=== PATIENT | male | born 1945 | race Hispanic/Latino ===

== ENCOUNTER → 2017-06-07 | Outpatient (CLI) | payer MEDICARE, BC ==
[~2017-06-07] MED LIST: EXFORGE 10-1601 EACH PO; FINASTERIDE5 MG PO; FLOMAX0.4 MG PO; OXYBUTYNIN CHLOR5 MG PO
--- NOTE | 2017-06-07 14:13 | Diagnostic Imaging Report ---
PROCEDURE: Frontal and lateral views of the chest. COMPARISON: None. INDICATIONS: HYPERTENSION FINDINGS: Lines/tubes: None. Lungs: The lungs are well inflated and clear. There is no evidence of pneumonia or pulmonary edema. Pleura: There is no pleural effusion or pneumothorax. Heart and mediastinum: The heart and the mediastinum are normal. Bones: No acute bony abnormality. IMPRESSION: No acute cardiopulmonary disease. Dictated by: Thierno Arambula M.D. on 06/07/2017 at 14:13 Electronically approved by: Thierno Arambula M.D. on 06/07/2017 at 14:13
== END ==
LOC: RAD 13:39
DX: I10 Essential (primary) hypertension (principal); R53.83 Other fatigue
CPT/HCPCS: 71046

== ENCOUNTER → 2019-09-26 | Outpatient (CLI) | payer MEDICARE, BC ==
--- NOTE | 2019-09-26 12:23 | Diagnostic Imaging Report ---
EXAMINATION: SP LUMBAR, COMPLETE MIN 4VW INDICATION: Back pain COMPARISON: None FINDINGS: AP, lateral, and oblique images of the lumbar spine were obtained. No acute fracture. Vertebral body heights are maintained. Grade 1 anterolisthesis at L5-S1. Minimal retrolisthesis at L2-3. Moderate multilevel degenerative changes with disc space narrowing and osteophyte formation most notably at L4-5 and L5-S1. Oblique images demonstrate no evidence of spondylolysis. Atherosclerotic arterial calcifications. IMPRESSION: No compression fracture Anterolisthesis at L5-S1. Multilevel degenerative changes, most notably at L4-5 and L5-S1. Signed by: Jordyn Hernandez MD on 09/26/2019 12:20 PM
--- NOTE | 2019-09-26 12:24 | Diagnostic Imaging Report ---
EXAMINATION: HIP LEFT 2-3 VW (+/- PELVIS) INDICATION: Left hip pain COMPARISON: None FINDINGS: AP and frog-leg views of the left hip demonstrate no acute fracture or dislocation. Alignment is anatomic. Soft tissues appear unremarkable. Atherosclerotic arterial calcifications. IMPRESSION: No acute osseous injury of the left hip. Signed by: Jordyn Hernandez MD on 09/26/2019 12:20 PM
== END ==
LOC: RAD 11:43
DX: M54.5 Low back pain (principal); M25.552 Pain in left hip
CPT/HCPCS: 72110

== ENCOUNTER → 2019-10-10 | Outpatient (CLI) | payer MEDICARE, BC ==
--- NOTE | 2019-10-11 17:09 | Diagnostic Imaging Report ---
History: Back pain Comparison studies: Lumbar spine MRI 04/10/2015. Lumbar spine x-ray 06/30/2019 Technique: Sagittal and axial T2 , sagittal T1 and IR, axial spin density oblique. Intravenous contrast: None Findings: Number of lumbar vertebral bodies: 5. Alignment: Normal lumbar lordosis with unchanged lumbar levocurvature with apex at L3-L4, grade 2 isthmic spondylolisthesis of L5 on S1 by approximately 8 mm due to chronic bilateral pars defects and minimal retrolisthesis of L1 on L2. Soft tissues: No T2 hyperintense inflammatory changes. Dorsal muscles: Mild symmetric fatty-replaced atrophic changes. Lower thoracic cord: Normal in signal and morphology. The tip of the conus is at L1-L2. Cauda equina: No masses. No arachnoiditis. Vertebrae: No compression fractures, infection or neoplasm. Degenerative changes: L1-L2: Mildly degenerated disc. Minimal retrolisthesis of L1 on L2 with associated uncovered disc/disc bulge and mild facet arthrosis without significant canal or foraminal stenosis. Findings are unchanged. L2-L3: Mildly degenerated disc. Symmetric disc bulge and mild facet arthrosis do not result in significant canal or foraminal stenosis. Findings are unchanged. L3-L4: Severely degenerated disc asymmetric on the right along the concavity lumbar curvature where there are degenerative endplate changes with Schmorl's node formation without significant endplate edema. Asymmetric right disc osteophyte complex, thickened ligamentum flavum and facet arthrosis result in mild canal stenosis, narrowing of the subarticular recesses (right greater than left) and moderate right and mild left foraminal stenosis. Findings are unchanged. L4-L5: Mildly degenerated disc. New 11 mm x 8 mm x 8 mm (SI x AP x TV) focal decreased T2/T1 signal in the right subarticular space compatible with disc extrusion which may be calcified or possibly with vacuum disc which impinges on the right L5 nerve root. Lumbar CT could better evaluate disc morphology, as warranted. New 10 mm x 6 mm x 8 mm left subarticular disc extrusion impinges on the left L5 nerve root. Asymmetric left disc bulge and facet arthrosis result in mild to moderate left and mild right foraminal stenosis. Foraminal stenosis on the left may be minimally increased from the prior exam. Small synovial cyst abuts the left L4 nerve root. No significant canal stenosis. L5-S1: Severely degenerated disc with advanced degenerative endplate changes without endplate edema. Anterolisthesis of L5 on S1 with associated uncovered disc/disc bulge and hypertrophic changes of the facets result in unchanged severe bilateral foraminal stenosis. No canal stenosis. IMPRESSION: 1. New L4-L5 disc extrusions with bilateral L5 nerve root impingement as described. 2. Unchanged Grade 2 L5 isthmic spondylolisthesis with severe disc degeneration and severe bilateral foraminal stenosis at L5-S1. 3. Unchanged severely degenerative L3-L4 disc along the concavity of lumbar levocurvature. 4. Unchanged moderate degenerative foraminal stenosis on the right at L3-L4. Mild to moderate foraminal stenosis on the left at L4-L5. 5. No significant lumbar canal stenosis. Signed by: Dr. Julian Waters M.D. on 10/11/2019 5:05 PM
== END ==
LOC: MRI 10:34
DX: M54.5 Low back pain (principal)
CPT/HCPCS: 72148

== ENCOUNTER 2019-11-13 06:28 | Observation (INO) | payer MEDICARE, BC, OTHER ==
[2019-11-11 14:43] LABS: BASOPHILS % 0.5 % (0.0-1.0); EOSINOPHILS # (AUTO) 0.1 (0.0-0.4); EOSINOPHILS % 1.4 % (0.0-6.0); HEMATOCRIT 40.6 % (38.2-49.6); HEMOGLOBIN 13.9 g/dL (14.0-18.0); LYMPHOCYTES # (AUTO) 2.1 (1.0-3.2); LYMPHOCYTES % 33.5 % (18.0-39.1); MEAN CORPUSCULAR HGB CONC 34.2 g/dL (31-35); MEAN CORPUSCULAR VOLUME 90.6 fL (81-99); MONOCYTES # (AUTO) 0.4 (0.2-0.8); MONOCYTES % 6.5 % (4.4-11.3); NEUTROPHILS # (AUTO) 3.6 (2.1-6.9); NEUTROPHILS % 57.9 % (38.7-80.0); PLATELET COUNT 171 x10e3/uL (140-360); RED BLOOD COUNT 4.48 x10e6/uL (4.3-5.7); RED CELL DISTRIBUTION WIDTH 12.5 % (11.7-14.4)
[2019-11-11 15:00] LABS: INR 0.99; PROTHROMBIN TIME 13.6 seconds (11.9-14.5)
[2019-11-11 15:01] LABS: PARTIAL THROMBOPLASTIN TIME 28.2 seconds (23.8-35.5)
[2019-11-11 15:07] LABS: BLOOD UREA NITROGEN 18 mg/dL (7-26); BUN/CREATININE RATIO 18 (6-25); CALCIUM 8.8 mg/dL (8.4-10.2); CARBON DIOXIDE 19 mmol/L (22-29); CHLORIDE 107 mmol/L (98-107); CREATININE, SERUM 0.99 mg/dL (0.72-1.25); EST GLOMERULAR FILTRATION RATE > 60 ML/MIN (60-); GLUCOSE 105 mg/dL (74-118); SODIUM 139 mmol/L (136-145)
--- NOTE | 2019-11-11 15:25 | Diagnostic Imaging Report ---
EXAMINATION: CHEST 2 VIEWS INDICATION: Pre-operative COMPARISON: None FINDINGS: LINES/TUBES:None LUNGS:The lungs are well-inflated. No focal consolidation or pulmonary edema. PLEURA:No pleural effusion or pneumothorax. MEDIASTINUM:The cardiomediastinal silhouette appears normal in size and shape. Sternotomy wires in place. BONES/SOFT TISSUES:No acute osseous injury. ABDOMEN:No free air under the diaphragm. IMPRESSION: No focal pneumonia or pulmonary edema. Signed by: Jordyn Hernandez MD on 11/11/2019 3:22 PM
[~2019-11-13] VITALS: Ht 175.3 cm; Wt 88.5 kg
[~2019-11-13 06:28] MED LIST changes: +ASPIRIN81 MG PO; +CRESTOR5 MG PO; +METOPROLOL TART25 MG PO; +PROTONIX20 MG PO; +VITAMIN D3250 MCG PO
[2019-11-13] MEDS ORDERED: THROMBIN FOR SOLN 5,000 UNIT VIAL ONE (06:41)
[2019-11-13] MEDS ORDERED: BUPIVACAINE 0.5%/EPI 30 ML SDV INJ ONE (06:41)
[2019-11-13] MEDS ORDERED: VANCOMYCIN HCL 1 GM VIAL ONE (06:41)
[2019-11-13] MEDS ORDERED: IBUPROFEN 800MG/ 200ML 200 ML IV ONE (07:26)
[2019-11-13] MEDS ORDERED: LIDOCAINE HCL (LTA) 4 ML SOLN ONE (07:26)
[2019-11-13] MEDS ORDERED: CEFAZOLIN SOD 1 GM/NS 50ML 100 ML IV ONE (07:28)
[2019-11-13] MEDS ORDERED: MORPHINE SULFATE 5 MG/ML VIAL IM PRN (09:45)
[2019-11-13] MEDS ORDERED: OXYCODONE/ACETAMINOPHEN 5-325 1 EACH TABLET PO PRN (09:45)
[2019-11-13] MEDS ORDERED: CEPACOL SORE THROAT LOZENGES PO PRN (09:45)
[2019-11-13] MEDS ORDERED: LACTATED RINGER'S 1,000 ML IV SCH (09:45)
[2019-11-13] MEDS ORDERED: PROMETHAZINE HCL (IM) 25 MG/ML VIAL IM PRN (09:45)
[2019-11-13] MEDS ORDERED: HYDROMORPHONE 2MG/ML 2 MG/ML ML IV PRN (09:45)
[2019-11-13] MEDS ORDERED: ONDANSETRON HCL INJ 2MG/ML 2ML 2 MG/ML VIAL IV PRN (09:45)
[2019-11-13] MEDS ORDERED: CARISOPRODOL 350 MG TAB PO PRN (09:45)
[2019-11-13] MEDS ORDERED: MAGNESIUM/ALUMINUM/SIMETHICONE 30 ML UDC PO PRN (09:45)
[2019-11-13] MEDS ORDERED: ACETAMINOPHEN 325 MG TAB PO PRN (09:45)
--- OUTSIDE RECORDS SUMMARY | 2019-11-13 10:13 | XMS REPORT | Clinical Summary ---
Author Author [facility] Organization [facility] Address Unknown Phone Unavailable Care Team Providers Care Camera Systems Engineer Name Role Phone Frederic Hinton MD PCP Allergies No Known Allergies Medications End Date Status Medication Sig Dispensed Refills Start Date Active valsartan (DIOVAN) 160 MG Take 160 mg 0 tablet by mouth daily. Active aspirin (ECOTRIN) 81 MG Take 81 mg by 0 enteric coated tablet mouth daily. Active finasteride (PROSCAR) 5 Take 5 mg by 0 mg tablet mouth daily. Active tamsulosin (FLOMAX) 0.4 Take 0.4 mg 0 mg capsule,extended by mouth release 24hr daily. Active pantoprazole (PROTONIX) Take 40 mg by 0 40 MG EC tablet mouth daily. Active acetaminophen-codeine Take 1 tablet 0 (TYLENOL WITH CODEINE #3) by mouth 300-30 mg per tablet every 4 (four) hours as needed for moderate pain. Active multivitamin with Take 1 tablet 0 minerals tablet by mouth daily. Active Problems Problem Noted Date CAD (coronary artery disease) 08/02/2017 Coronary artery disease involving [place] coronary art shannon of [place] heart 07/17/2017 without angina pectoris Family History Medical History Relation Name Comments Cancer Father Lung disease Father Kidney disease Mother Heart murmur Sister Relation Name Status Comments Father Mother Sister Social History Date Tobacco Use Types Packs/Day Years Used Never Smoker Smokeless Tobacco: Never Used Drinks/Week oz/Week Comments Alcohol Use occasional beer Yes Sex Assigned at Date Recorded Not on file Industry Job Start Date Occupation Not on file Not on file Not on file Travel End Travel History Travel Start No recent travel history available. Last Filed Vital Signs Not on file Plan of Treatment Health Maintenance Due Date Last Done Comments COLONOSCOPY SCREENING 1993 SHINGLES VACCINES (#1) 1993 65+ PNEUMOCOCCAL VACCINE 2008 (1 of 2 - PCV13) INFLUENZA VACCINE 12/04/2019 Implants Device Identifier Shelf Expiration Date Model / Serial / L ot Implanted Type Area Manufactur er 6500F / / Lead Pace Amol Mycrdl Unipol Tmpry Cardiovasc N/A: N/A [employer] Streamline - [id number] ular [place] - Implanted: 08/03/2017 at [facility] [place] CARDIAC [facility] (Quantity not on file) SRGRY [id number] / / Lead Pace Amol Mycrdl Unipol Tmpry Cardiovasc N/A: N/A [employer] Streamline - [id number] ular [place] - Implanted: 08/03/2017 at [facility] [place] CARDIAC [facility] (Quantity not on file) SRGRY [id number] / / Clip Ligtng Weck Hemoclip Plus W/ Medical N/A: N/A WECK Tape Ti Sm Strngpnt - [id number] Clips for CLOSU RE Implanted: 08/03/2017 at [facility] (Quantity not on file) Use [id number] / / Clip Ligtng Weck Hemoclip Plus W/ Medical N/A: N/A TELEFLEX Tape Ti Med - [id number] Clips for MEDICAL Implanted: 08/03/2017 at [facility] (Quantity not on file) Use [id number] / / Clip Ligtng Weck Hemoclip Plus W/ Medical N/A: N/A WECK Tape Ti Sm Strngpnt - [id number] Clips for CLOSU RE Implanted: 08/03/2017 at [facility] (Quantity not on file) Use [id number] / / Clip Ligtng Weck Hemoclip Plus W/ Medical N/A: N/A WECK Tape Ti Sm Strngpnt - [id number] Clips for CLOSU RE Implanted: 08/03/2017 at [facility] (Quantity not on file) Use [id number] / / Clip Ligtng Weck Hemoclip Plus W/ Medical N/A: N/A WECK Tape Ti Sm Strngpnt - [id number] Clips for CLOSU RE Implanted: 08/03/2017 at [facility] (Quantity not on file) Use [id number] / / Clip Ligtng Weck Hemoclip Plus W/ Medical N/A: N/A TELEFLEX Tape Ti Med - [id number] Clips for MEDICAL Implanted: 08/03/2017 at [facility] Internal [facility] (Quantity not on file) Use [id number] / / Clip Ligtng Wecosme Hemoclip Plus W/ Medical N/A: N/A WECK Tape Ti Sm Strngpnt - [id number] Clips for CLOSU RE Implanted: 08/03/2017 at [facility] Internal [facility] (Quantity not on file) Use 05/30/2022 [id number] / / [id number] [facility] Vas[facility] Ptfe 1.2x10cm Vascular N/A: N/A BARD 1.65mm - [id number] Graft PERIPHERAL Implanted: 08/03/2017 at [facility] VASCULAR [facility] (Quantity not on file) Results Not on fileafter 11/12/2018 Insurance Type Payer Benefit Subscriber ID Effective Phone Address Plan / Dates Group Medicare MEDICARE MEDICARE xxxxxxxxxxx 2008-P [place], PART A AND resent [place] B PPO BCBS BCBS xxxxxxxxx 2001- CHOICE Present PPO/UMNIR GALVAN PPO Advance Directives For more information, please contact: [phone] Patient Automatic Head Sawyer Explanation Type Date Recorded Advance Directives, Living Will and Medical Power of Building Equipment Inspector Advance Directives, 08/08/2017 8:47 AM Living Will and Medical Power of Building Equipment Inspector Advance Directives, 08/08/2017 8:47 AM Living Will and Medical Power of Building Equipment Inspector
--- OUTSIDE RECORDS SUMMARY | 2019-11-13 10:13 | XMS REPORT | Continuity of Care Document ---
Author Author [facility] t Organization [facility] Address [address] [place] [address] Phone Unavailable Care Team Providers Care Counseling Psychologist Name Role Phone Jamaal VENCES, Alysia PCP PETER LAL Attphys Unavailable ALYSIA CUMMINGS Attphys Unavailable Problems Condition Name Condition Details Condition Category Status Onset Date Resolution Date Last Treatment Date Treating Clinician Comments Source CAD (coronary artery disease) CAD (coronary artery disease) Disease Active 2017-08-02 00:00:00 Ck [place] Coronary artery disease involving [place] coronary artery of [place] heart without angina pectoris Coronary artery disease involving [place] coronary artery of [place] heart without angina pectoris Disease Active 2017-07-17 00:00:00 Ck [place] Allergies, Adverse Reactions, Alerts This patient has no known allergies or adverse reactions. Family History Family Member Diagnosis Comments Start Date Stop Date Source Natural father Cancer [facility] Natural father Lung disease Ck [place] Natural mother Kidney disease [place] Natural sister Heart murmur Ck [place] Social History Social Habit Start Date Stop Date Quantity Comments Source Sex Assigned At [facility] Yarsani Alcohol intake 2017-08-07 00:00:00 2017-08-07 00:00:00 Current drinker of alcohol (finding) Ck [place] Alcohol Comment 2017-08-03 00:00:00 2017-08-03 00:00:00 occasional be er Ck [place] Smoking Status Start Date Stop Date Source Never smoker [facility]k [facility] Medications Ordered Medication Name Filled Medication Name Start Date Stop Da te Current Medication? Ordering Clinician Indication Dosage Frequency Signature (SIG) Comments Components Source valsartan (DIOVAN) 160 MG tablet 2017-08-12 14:17:07 Yes 160mg QD Take 160 mg by mouth daily. Ck [place] aspirin (ECOTRIN) 81 MG enteric coated tablet 2017-08-12 14:17:0 7 Yes 81mg QD Take 81 mg by mouth daily. Liz Mcclell[place] finasteride (PROSCAR) 5 mg tablet 2017-08-12 14:17:07 Yes 5mg QD Take 5 mg by mouth daily. Ck [place] tamsulosin (FLOMAX) 0.4 mg capsule,extended release 24hr 2017-08-12 14:17:07 Yes .4mg QD Take 0.4 mg by mouth daily. Ck [place] pantoprazole (PROTONIX) 40 MG EC tablet 2017-08-12 14:17:07 Yes 40mg QD Take 40 mg by mouth daily. Ck [place] acetaminophen-codeine (TYLENOL WITH CODEINE #3) 300-30 mg pe r tablet 2017-08-12 14:17:07 Yes 1{tbl} Q4H Take 1 tablet by mouth every 4 (four) hours as needed for moderate pain. [place] multivitamin with minerals tablet 2017-08-12 14:17:07 Yes 1{tbl} QD Take 1 tablet by mouth daily. Ck [facility] Procedures This patient has no known procedures. Plan of Care Planned Activity Planned Date Details Comments Source Future Scheduled Test 2019-12-04 00:00:00 INFLUENZA VACCINE [code = INFLUENZA VACCINE] [facility] Future Scheduled Test 2008 00:00:00 65+ PNEUMOCOCCAL V ACCINE (1 of 2 - PCV13) [code = 65+ PNEUMOCOCCAL VACCINE (1 of 2 - PCV13)] [facility] Future Scheduled Test 1993 00:00:00 COLONOSCOPY SCREEN ING [code = COLONOSCOPY SCREENING] [facility] Future Scheduled Test 1993 00:00:00 SHINGLES VACCINES (#1) [code = SHINGLES VACCINES (#1)] [facility] Results Test Description Test Time Test Comments Results Result Comments Source CHEST 2 VIEWS 2019-11-11 15:21:00 [facility] [address], [place] [address] Patient Name: KIRIT PHILLIPS MR #: [id number] : 1945 Age/Sex: 74/M Req #: [id number] Adm Physician: Ordered by: PETER LAL MD Report #: [id number] Location: OR Room/Bed: Procedure: DX/CHEST 2 VIEWS Exam Date: Exam Time: REPORT STATUS: Signed EXAMINATION: CHEST 2 VIEWS INDICATION: Pre- operative COMPARISON: None FINDINGS: LINES/TUBES:None LUNGS:The lungs are well-inflated. No focal consolidation or pulmonary edema. PLEURA:No pleural effusion or pneumothorax. MEDIASTINUM:The car diomediastinal silhouette appears normal in size and shape. Sternotomy wires in place. BONES/SOFT TISSUES:No acute osseous injury. ABDOMEN:No free air under the diaphragm. IMPRESSION: No focal pneumonia or pulmonary edema. Signed by: Tiffany Luong MD on 11/11/2019 3:22 PM Dictated By: TIFFANY LUONG MD 152 Transcribed By: HAKEEM on 11/11/19 1522 COPY TO: PETER LAL MD MRI SPINE LUMBAR WO 2019-10-11 16:42:00 [place] [address] Patient Name: KIRIT PHILLIPS MR #: [id number] : 1945 Age/Sex: 74/M Req #: [id number] Adm Physician: Ordered by: ALYSIA CUMMINGS MD Report #: [id number] Location: MRI Room/Bed: Procedure: [id number] MRI/MRI SPINE LUMBAR WO Exam Date: Exam Time: REPORT STATUS: Signed History: Back pain Comparison studies: Lumbar spine MRI 04/10/2015. Lumbar spine x-ray 06/30/2019 Technique: Sagittal and axial T2 , sagittal T1 and IR, axial spin density oblique. Intravenous contrast: None Findings: Number of lumbar vertebral bodies: 5. Alignment: Normal lumbar lordosis with unchanged lumbar levocurvature with apex at L3-L4, grade 2 isthmic spondylolisthesis of L5 on S1 by approximately 8 mm due to chronic bilateral pars defects and minimal retrolisthesis of L1 on L2. Soft tissues: No T2 hyperintense inflammatory changes. Dorsal muscles: Mild symmetric fatty-replaced atrophic changes. Lower thoracic cord: Normal in signal and morphology. The tip of the conus is at L1-L2. Cauda equina: No masses. No arachnoiditis. Vertebrae: No compression fractures, infection or neoplasm. Degenerative changes: L1-L2: Mildly degenerated disc. Minimal retrolisthesis of L1 on L2 with associated uncovered disc/disc bulge and mild facet arthrosis without significant canal or foraminal stenosis. Findings are unchanged. L2-L3: Mildly degenerated disc. Symmetric disc bulge and mild facet arthrosis do not result in significant canal or foraminal stenosis. Findings are unchanged. L3-L4: Severely degenerated disc asymmetric on the right along the concavity lumbar curvature where there are degenerative endplate changes with Schmorl's node formation without significant endplate edema. Asymmetric right disc osteophyte complex, thickened ligamentum flavum and facet arthrosis result in mild canal stenosis, narrowing of the subarticular recesses (right greater than left) and moderate right and mild left foraminal stenosis. Findings are unchanged. L4-L5: Mildly degenerated disc. New 11 mm x 8 mm x 8 mm (SI x AP x TV) focal decreased T2/T1 signal in the right subarticular space compatible with disc extrusion which may be calcified or possibly with vacuum disc which impinges on the right L5 nerve root. Lumbar CT could better evaluate disc morphology, as warranted. New 10 mm x 6 mm x 8 mm left subarticular disc extrusion impinges on the left L5 nerve root. Asymmetric left disc bulge and facet arthrosis result in mild to moderate left and mild right foraminal stenosis. Foraminal stenosis on the left may be minimally increased from the prior exam. Small synovial cyst abuts the left L4 nerve root. No significant canal stenosis. L5-S1: Severely degenerated disc with advanced degenerative endplate changes without endplate edema. Anterolisthesis of L5 on S1 with associated uncovered disc/disc bulge and hypertrophic changes of the facets result in unchanged severe bilateral foraminal stenosis. No canal stenosis. IMPRESSION: 1. New L4-L5 disc extrusions with bilateral L5 nerve root impingement as described. 2. Unchanged Grade 2 L5 isthmic spondylolisthesis with severe disc degeneration and severe bilateral foraminal stenosis at L5-S1. 3. Unchanged severely degenerative L3-L4 disc along the concavity of lumbar levocurvature. 4. Unchanged moderate degenerative foraminal stenosis on the right at L3-L4. Mild to moderate foraminal stenosis on the left at L4-L5. 5. No significant lumbar canal stenosis. Signed by: Dr. Zuleyma Waters M.D. on 10/11/2019 5:05 PM Dictated By: ZULEYMA WATERS MD 04 Transcribed By: HAKEEM on 10/11/191704 COPY TO: ALYSIA CUMMINGS MD HIP LEFT 2-3 VW (+/- PELVIS) 2019-09-26 12:20:00 [place] [address] Patient Name: KIRIT PHILLIPS MR #: [id number] : 1945 Age/Sex: 74/M Req #: [id number] [facility] Physician: Ordered by: ALYSIA CUMMINGS MD Report #: [id number] Location: [facility] Room/Bed: Procedure: DX/HIP LEFT 2-3 VW (+/- PELVIS) Exam Date: Exam Time: REPORT STATUS: Signed EXAMINATION: HIP LEFT 2-3 VW (+/- PELVIS) INDICATION: Left hip pain COMPARISON: None FINDINGS: AP and frog-leg views of the left hip demonstrate no acute fracture or dislocation. Alignment is anatomic. Soft tissues appear unremarkable. Atherosclerotic arterial calcifications. IMPRESSION: No acute osseous injury of the left hip. Signed by: Tiffany Luong MD on 09/26/2019 12:20 PM Dictated By: TIFFANY LUONG MD 122 Transcribed By: HAKEEM on 09/26/19 122 COPY TO: ALYSIA CUMMINGS MD SP LUMBAR, COMPLETE MIN 4VW 2019-09-26 12:18:00 [place] [address] Patient Name: KIRIT PHILLIPS MR #: [id number] : 1945 Age/Sex: 74/M Req #: [id number] [facility] Physician: Ordered by: ALYSIA CUMMINGS MD Report #: [id number] Location: [facility] Room/Bed: Procedure: DX/SP LUMBAR, COMPLETE MIN 4VW Exam Date: 09/26/19 Exam Time: 1155 REPORT STATUS: Signed EXAMINATION: SP LUMBAR, COMPLETE MIN 4VW INDICATION: Back pain COMPARISON: None FINDINGS: AP, lateral, and oblique images of the lumbar spine were obtained. No acute fracture. Vertebral body heights are maintained. Grade 1 anterolisthesis at L5-S1. Minimal retrolisthesis at L2-3. Moderate multilevel degenerative changes with disc space narrowing and osteophyte formation most notably at L4-5 and L5-S1. Oblique images demonstrate no evidence of spondylolysis. Atherosclerotic arterial calcifications. IMPRESSION: No compression fracture Anterolisthesis at L5-S1. Multilevel degenerative changes, most notably at L4-5 and L5-S1. Signed by: Tiffany Luong MD on 09/26/2019 12:20 PM Dictated By: TIFFANY LUONG MD 122 Transcribed By: HAKEEM on 09/26/19 1220 COPY TO: ALYSIA CUMMINGS MD CHEST 2 VIEWS [place] [address] Patient Name: KIRIT PHILLIPS MR #: [id number] : 1945 Age/Sex: 72/M Req #: [id number] Adm Physician: Ordered by: ALYSIA CUMMINGS MD Report #: [id number] Location: [facility] Room/Bed: Procedure: [id number] DX/CHEST 2 VIEWS Exam Date: 06/07/17 Exam Time: 1346 REPORT STATUS: Signed PROCEDURE: Frontal and lateral views of the chest. COMPARISON: None. INDICATIONS: HYPERTENSION FINDINGS: Lines/tubes: None. Lungs: The lungs are well inflated and clear. There is no evidence of pneumonia or pulmonary edema. Pleura: There is no pleural effusion or pneumothorax. Heart and mediastinum: The heart and the mediastinum are normal. Bones: No acute bony abnormality. IMPRESSION: No acute cardiopulmonary disease. Dictated by: Thierno Graff M.D. on 06/07/2017 at 14:13 Electronically approved by: Thierno Graff M.D. on 06/07/2017 at 14:13 Dictated By: THIERNO GRAFF MD 1413 Transcribed By: DAVE on 06/07/17 1413 COPY TO: ALYSIA CUMMINGS MD
--- NOTE | 2019-11-13 11:16 | Operative Report ---
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 POSTOPERATIVE DIAGNOSIS: Left L4-L5 disk herniation and lateral recess stenosis with inferior migration of the extruded disk fragment, M51.16. PROCEDURES: Left L4-L5 laminotomy, medial facetectomy, and microsurgical resection of extruded disk, 42276. ANESTHESIA: General. 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 He was taken to the surgery for microsurgical decompression of the left L5 nerve root at the L4-L5 level. PROCEDURE IN DETAIL: After induction of general anesthesia, the patient was placed on the operating table in the prone position over Yobany frame. Lumbar region was prepped and draped in sterile fashion. A preoperative x-ray was obtained. A small midline incision was created. Lumbar fascia was opened. The left of midline and the underlying laminae were exposed. A 2nd x-ray revealed localization at L5-S1. One level was counted above this segment to locate the L4-L5 segment. The L4 and L5 lamina and the medial aspect of the L4-L5 hypertrophic facet joint were exposed. The operating microscope was brought in. A high-speed drill equipped with kasey bur was used to drill the inferior aspect of the lamina of L4 and superior aspect of the lamina of L5 and the medial aspect of the L4-L5 facet joint. The ligamentum flavum, which was quite hypertrophic was resected and the lateral margin of the dura at the L5 traversing nerve root were exposed. The epidural veins lateral to the nerve were bipolar coagulated and divided with micro-scissors. The underlying disk space came into view. A ball probe was then passed inferiorly ventral to the nerve root into the L5 lateral recess and used to retrieve the edge of the extruded disk material; this was then grasped with a micro pituitary rongeur. A large fragment of this was retrieved and removed from the lateral recess. This maneuver was repeated several additional times and several small fragments of extruded disk were retrieved and removed from the L5 lateral recess until the nerve root was fully decompressed. The anulus of the disk was fairly intact and was not further opened during this operation. Excellent decompression had been achieved. The wound was irrigated with bacitracin solution. Meticulous hemostasis was secured. The lumbar fascia was closed with 0 Vicryl suture. Subcutaneous layer was closed with 2-0 Vicryl sutures. The skin was closed with 3-0 Monocryl sutures in subcuticular fashion. Steri-Strips and dressing were applied. The patient was awakened, extubated, and taken to Postanesthesia Care Unit in stable condition. No intraoperative complications were encountered. Estimated blood loss was 10 mL. Kingsley Dan MD PP/JESUS /[id number]
--- NOTE | 2019-11-13 11:30 | NUR ---
Pt arrived t o unit and states he had to go to the bathroom immediately. Ambulated with sba. In no apparent distress. Able to make needs known. Dressing cdi. Slight cough as he says the surgery irritated his throat. Given ice water and scds, he called his family and let them know that he will be discharged this afternoon if his recovery is normal
--- NOTE | 2019-11-13 11:31 | NUR ---
RECEIVED REPORT FROM PACU. PATIENT ARRIVED TO THE UNIT @ 1014. PATIENT IN STABLE CONDITION, NO S/S OF DISTRESS NOTED. LOCKE IN PLACE DRAINING BRIGHT RED WITH CONTINUOUS BLADDER IRRIGATION NOTED. SCDs APPLIED. NO PAIN VOICED. SKIN INTACT. RESPIRATION EVEN AND NON LABORED. IV FLUIDS INFUSING, SITE ASYMPTOMATIC AND PATENT, TRANSPARENT DRESSING C/D/I. BED IN LOWEST POSITION AND LOCKED, SIDE RAILS X 2 , NONSKID SOCKS APPLIED. CALL LIGHT WITHIN REACH. Addendum: 11/13/19 at 1132 by Nadira Reagan RN ENTRY ERROR
[2019-11-13 11:55] VITALS: BP 138/84
[2019-11-13 12:02] VITALS: BP 138/84
[2019-11-13 12:07] VITALS: BP 138/84
[2019-11-13 12:11] VITALS: BP 138/84
[2019-11-13] MEDS ORDERED: ROCURONIUM BROMIDE 10 MG/ML 5ML VIAL IV ONE (13:46)
[2019-11-13] MEDS ORDERED: SEVOFLURANE INHAL SOLN 250 ML PEN BTL ONE (13:46)
[2019-11-13] MEDS ORDERED: LIDOCAINE HCL 2% JELLY 5 ML TUBE ONE (13:46)
[2019-11-13] MEDS ORDERED: DEXAMETHASONE SOD PHOS INJ 4 MG/ML VIAL ONE (13:46)
[2019-11-13] MEDS ORDERED: NEOSTIGMINE 1 MG/ML 10ML VIAL ONE (13:46)
[2019-11-13] MEDS ORDERED: GLYCOPYRROLATE INJ 0.2 MG/ML VIAL ONE (13:46)
[2019-11-13] MEDS ORDERED: PROPOFOL IV EMULSION 10 MG/ML 20 ML VIAL ONE (13:46)
[2019-11-13] MEDS ORDERED: LIDOCAINE HCL 2% LOCAL INJ 5 ML SDV VIAL INJ ONE (13:46)
[2019-11-13] MEDS ORDERED: ONDANSETRON HCL INJ 2MG/ML 2ML 2 MG/ML VIAL ONE (13:46)
[2019-11-13] MEDS ORDERED: NORCO 7.5-3251 EACH PO (15:09)
[2019-11-13 15:33] VITALS: BP 126/66
--- NOTE | 2019-11-13 15:59 | NUR ---
Ambulated in hallways with sba for safety. In no distress denies pain states he only has a little soreness. After laying down a while, states he is able to go home after lBank (sister) otis gets his discharge instructions. Attempted to call her but no answer. Left [facility] [place] for her to call me back.
[2019-11-13] MEDS ORDERED: CEFAZOLIN SOD 1 GM/NS 50ML 50 ML IV SCH (16:00)
[2019-11-13] MEDS ORDERED: METOPROLOL TARTRATE 25 MG TAB PO SCH (17:00)
[2019-11-13] MEDS ORDERED: SIMVASTATIN 20 MG TAB PO SCH (21:00)
[2019-11-13] MEDS ORDERED: ZOLPIDEM TARTRATE 5 MG TAB PO PRN (21:00)
[2019-11-14] MEDS ORDERED: OXYBUTYNIN CHLORIDE 5 MG TAB PO SCH (09:00)
[2019-11-14] MEDS ORDERED: VALSARTAN 160 MG TAB PO SCH (09:00)
[2019-11-14] MEDS ORDERED: TAMSULOSIN HCL 0.4 MG CAP PO SCH (09:00)
[2019-11-14] MEDS ORDERED: CHOLECALCIFEROL 1,000 UNIT TAB PO SCH (09:00)
[2019-11-14] MEDS ORDERED: FINASTERIDE 5 MG TAB PO SCH (09:00)
[2019-11-14] MEDS ORDERED: AMLODIPINE BESYLATE 10 MG TAB PO SCH (09:00)
[2019-11-14] MEDS ORDERED: PANTOPRAZOLE SOD 40 MG TABEC PO SCH (09:00)
[2019-11-14] MEDS ORDERED: NON-FORMULARY MEDICATION (Cholecalciferol (Vitamin D3) (Vitamin D3) 2,000 MG) PO SCH (09:00)
== END 2019-11-13 17:00 | disposition home or self-care (01) ==
LOC: OR 06:28 → PACU V 09:48 → IMCU 11:58
PROVIDERS: ADMIT Neurological Surgery; ATTEND Neurological Surgery
DX: M51.16 Intervertebral disc disorders with radiculopathy, lumbar region (principal); Z11.59 Encounter for screening for other viral diseases; I10 Essential (primary) hypertension; E11.9 Type 2 diabetes mellitus without complications; K21.9 Gastro-esophageal reflux disease without esophagitis; E78.5 Hyperlipidemia, unspecified; Z01.812 Encounter for preprocedural laboratory examination
CPT/HCPCS: 36415 ×2; 63047; 71046; 72020; 80048; 82948; 85025; 85610; 85730; 86850; 86900; 88304; 88311; 93005; G0378; J0690; J3370; U0002; J1100; J2001; J2405; J2710

== ENCOUNTER → 2020-11-25 | Outpatient (CLI) | payer MEDICARE, BC ==
[~2020-11-25] MED LIST changes: +NORCO 7.5-3251 EACH PO
== END ==
LOC: CT 07:05
DX: R74.8 Abnormal levels of other serum enzymes (principal); R63.4 Abnormal weight loss
CPT/HCPCS: 74176

== ENCOUNTER → 2021-02-08 | Outpatient (CLI) | payer BC, MEDICARE | LOC: RAD 13:03 | DX: R07.89 Other chest pain (principal); W19.XXXA Unspecified fall, initial encounter | CPT/HCPCS: 71101 ==

== ENCOUNTER → 2021-09-28 | Outpatient (CLI) | payer MEDICARE, BC | LOC: RAD 08:25 | DX: R60.0 Localized edema (principal); I10 Essential (primary) hypertension; I25.10 Atherosclerotic heart disease of native coronary artery without angina pectoris; E78.5 Hyperlipidemia, unspecified | CPT/HCPCS: 93970 ==

== ENCOUNTER → 2024-04-09 | Outpatient (REF) | payer MEDICARE, BC | LOC: CT 11:34 | PROVIDERS: ATTEND Family Medicine Adult Medicine | DX: M54.50 Low back pain, unspecified (principal); M54.16 Radiculopathy, lumbar region | CPT/HCPCS: 72131 ==